=== PATIENT | female | born 1940 | race Caucasian/White ===

== ENCOUNTER 2019-05-04 15:10 | Emergency (ER) | payer MEDICARE, SELFPAY ==
[2019-05-04] VITALS (7 sets, daily range): BP systolic 118–191; BP diastolic 56–84; PULSE 66–88; RESP 10–20; TEMP 36.6; O2SAT 97–100
--- NOTE | ~2019-05-04 | CT_ITS ---
EXAMINATION: CTA chest PE protocol DATE: 05/04/2019 16:40 LAB AID INDICATION: Left pleuritic chest pain TECHNIQUE: Computed tomographic angiography (CTA) of the chest was performed with 100 mL Omnipaque-35 0 intravenous contrast. The dose-length product was 358.88 mGy-cm. Maximum intensity projection 3D-re constructions of the aorta and other arteries were constructed by the technologist on a separate work station. Automated exposure control and iterative reconstruction technique were employed. COMPARISON: Chest x-ray dated 05/04/2019 FINDINGS: Study is technically adequate without evidence for pulmonary embolism. Enlarged pulmonary a rteries, consistent with pulmonary arterial hypertension. There is atherosclerosis of the aorta witho ut evidence for dissection or aneurysm. No significant pleural or pericardial effusion. No thoracic l ymphadenopathy. There is fluid in the superior pericardial recess. There is nodular thickening of the left adrenal gland, likely due to adenomatous change. There are gallstones. There is severe emphysema. There is bilateral apical pleural thickening/scarring. No pneumothorax. No focal airspace consolidation. Calcified granuloma right middle lobe and lingula. IMPRESSION: 1. No evidence for pulmonary embolism. No acute cardiopulmonary disease. 2: Severe emphysema predominantly affecting the upper lobes. Biapical pleural thickening/scarring. 3: Pulmonary arterial hypertension. 4: Cholelithiasis. Reviewed, dictated and finalized at location A. AID IMPRESSION: 1. No evidence for pulmonary embolism. No acute cardiopulmonary disease. 2: Severe emphysema predominantly affecting the upper lobes. Biapical pleural t hickening/scarring. 3: Pulmonary arterial hypertension. 4: Cholelithiasis.
--- NOTE | ~2019-05-04 | XR_ITS ---
XR chest 2V 05/04/2019 16:40 Indication: Left-sided chest pain. Shortness of breath. Emphysema. Procedure: 2 view chest Comparison: 05/05/2017 Findings: Severe emphysema. No acute focal pneumonia, edema or effusion. No acute osseous abnormality . Mild levoscoliosis of the thoracic spine. Impression: 1: No acute cardiopulmonary disease. 2: Severe emphysema. Reviewed, dictated and finalized at location A. SPORTATION SUPERVISOR Impression: 1: No acute cardiopulmonary disease. 2: Severe emphysema.
--- NOTE | 2019-05-04 15:16 | ECG_ITS ---
Measurements Intervals [place] Rate: 88 P: 89 KS: 154 QRS: 64 QRSD: 106 T: 36 QT: 353 QTc: 429 Interpretive Statements SINUS RHYTHM INCOMPLETE RIGHT BUNDLE BRANCH BLOCK BASELINE ARTIFACT- I, II, III, AVR, AVL, AVF, V1-V2 BORDERLINE ECG Electronically Signed On 05-04-2019 16:07:49 LEAD INFORMATICA DEVELOPER by Ye Drake D.O.
[2019-05-04] MEDS: ASPIRIN 81 MG CHEWABLE TABLET 324 MG PO (15:28)
[2019-05-04 15:31] LABS: Basophils Absolute Auto 0.1 K/mm3 (0.0-0.1); Basophils Percent Auto 0.7 % (0.2-1.2); Eosinophils Absolute Auto 0.4 K/mm3 (0-0.3); Hematocrit 44.5 % (37.0-47.0); Hemoglobin 14.6 g/dL (12.0-15.0); Immature Granulocyte Absolute 0.03 K/mm3 (0.00-0.031); Immature Granulocyte Percent A 0.4 % (0-0.5); Lymphocytes Absolute Auto 1.99 K/mm3 (0.9-3.2); Lymphocytes Percent Auto 26.8 % (18.3-44.2); Mean Corpuscular HGB Conc 32.8 g/dl (32-36); Mean Corpuscular Hemoglobin 30.9 pg (26-34); Mean Corpuscular Volume 94.3 fl (80-100); Mean Platelet Volume 8.9 fl (7.4-10.4); Monocytes Percent Auto 13.1 % (2.6-8.5); Platelet Count Result 322 k/mm3 (150-375); Red Blood Count 4.72 M/mm3 (4.2-5.4); Red Cell Distribution Width 13.2 % (11.5-14.5); White Blood Count 7.4 K/mm3 (4.5-10.0)
[2019-05-04 15:42] LABS: Blood Urea Nitrogen 21 mg/dL (7-17); Calcium 9.9 mg/dL (8.4-10.2); Carbon Dioxide 29 mmol/L (22-30); Chloride 96 mmol/L (98-107); Estimated CRCL calculation 36 ml/min; Estimated Glomerular Filt Rate 60; Glucose 89 mg/dL (65-105); Potassium 4.1 mmol/L (3.4-5.0); Sodium 138 mmol/L (137-145)
[2019-05-04 15:46] LABS: INR 0.8; Prothrombin Time 11.2 Seconds (11.1-14.7)
[2019-05-04 15:47] LABS: Partial Thromboplastin Time 27.8 SECONDS (22.3-36.8)
[2019-05-04 15:54] LABS: Troponin I < 0.012 ng/mL (0.000-0.034)
--- NOTE | 2019-05-04 15:54 | ED.CHESTPAIN ---
HPI - Chest Pain General Chief Complaint: Chest Pain Stated Complaint: chest pain Time Seen by Provider: 05/04/19 15:44 Source: patient and RN notes reviewed Mode of arrival: other Limitations: no limitations History of Present Illness HPI narrative: Pt is an 79 y/o female who presents to the ED with c/o constant left sided chest pain that radiates to left sided neck, her left shoulder, and into the middle of her back. Pt's pain began 3 days ago (05/01/19), but has been progressively worsening. Pt denies a similar episode. Pt called her pulmonolgist and was recommended to come to the ED for further evaluation. Pt's sx are aggravated by movement and alleviated minimally while resting. Pt has been taking Vicodin for her sx, but no relief with the medication. Pt denies worsening SOB, cough, fever, nausea, vomiting, lightheadedness, and dizziness. Pt's pulmonolgist is Dr. Devine. complaint: chest pain Onset (ago): day(s) (3) Timing of current episode: constant Prior episodes: No Pain location: left chest Pain radiation: back (middle), neck (left) and left shoulder Relieving factors: remaining still (minimally) Exacerbating factors: exertion Associated symptoms: other (denies associated symptoms) Related Data Home Medications Medication Instructions Recorded Confirmed albuterol sulfate INHALATION 05/04/19 budesonide-formoterol [Symbicort] INHALATION 05/04/19 levothyroxine 05/04/19 triamterene-hydrochlorothiazid tablet 05/04/19 Allergies Allergy/AdvReac Type Severity Reaction Status Date / Time No Known Allergies Allergy Verified 05/04/19 15:28 Review of Systems Review of Systems: All systems reviewed & are unremarkable except as noted in HPI and below Constitutional: Constitutional: Denies fever(s) Cardiovascular: Cardiovascular: Reports chest pain (left, radiates to left neck, left shoulder, and to her middle back) and Denies lightheadedness Respiratory: Respiratory: Denies cough and Denies dyspnea (worsening) Gastrointestinal: Gastrointestinal: Denies nausea and Denies vomiting Neurologic: Denies dizziness PMF Past Medical History Medical History (Updated 05/04/19 @ 19:24 by Daniella Mars MD) Anxiety COPD (chronic obstructive pulmonary disease) Emphysema of lung GERD (gastroesophageal reflux disease) Hiatal hernia HTN (hypertension) Hypothyroid Osteoporosis Surgical History Surgical History (Updated 05/04/19 @ 16:08 by Alicia Blackwell) H/O breast biopsy History of tubal ligation Hx of appendectomy Social History Social History (Updated 05/04/19 @ 16:08 by Alicia Blackwell) Smoking packs per day: 1 Smoking cigarettes per day: 20.0 Years smoked: 30 Smoking pack-years: 30.00 Smoking status: Former smoker Tobacco type: cigarettes Second hand tobacco smoke exposure: Yes Additional smoking assessment comments: Pt quit smoking 30 years ago. Exam Narrative: Exam Narrative: GENERAL: Well-appearing, well-nourished, and in no acute distress. HEAD: Normocephalic, atraumatic EYES: PERRLA and EOMI, conjunctiva clear without discharge THROAT:Mucous membranes moist, Oropharynx normal without erythema, exudate, peritonsillar swelling or fluctuance NECK: Supple, without lymphadenopathy or mass RESPIRATORY: No respiratory distress, Airway patent, Respirations non-labored, Expiratory wheezing to left , reproducible left anterior chest and left posterior chest tenderness HEART: Regular rate and rhythm. No murmur heard. Normal peripheral pulses. strong palpable radial pulses ABDOMEN: Soft, nontender, nondistended, normal active bowel sounds. No masses. No rebound or guarding, No organomegaly. EXTREMITIES: No edema, normal strength with full range of motion. SKIN: Warm, dry, normal color without rash NEURO: Alert and oriented x3. CN 2-12 grossly intact. No focal deficits. PSYCH: Normal mood and affect. Course Course Emergency Course: Patient presented for pleurit
--- NOTE | 2019-05-04 16:23 | PCRCNOTE ---
PT IN CAT SCAN. TX DELAYED DUE TO PT N/A
[2019-05-04] MEDS: KETOROLAC 15 MG/ML VIAL (*BKC) IV PUSH (16:51)
[2019-05-04] MEDS: ALBUTEROL SULFATE NEB 2.5 MG/0.5 ML INH 5 MG INHALATION (17:10)
[2019-05-04] MEDS: IPRATROPIUM BR 0.02% INH SOLN 0.5 MG/2.5 ML VIAL INHALATION (17:10)
[2019-05-04 18:54] LABS: Troponin I < 0.012 ng/mL (0.000-0.034)
== END 2019-05-04 19:45 | disposition home or self-care (01) ==
PROVIDERS: Emergency Medicine; Emergency Provider General Practice; PCP Family Medicine
DX: J44.9 Chronic obstructive pulmonary disease, unspecified (principal); R07.9 Chest pain, unspecified; Z87.891 Personal history of nicotine dependence; F41.9 Anxiety disorder, unspecified; K21.9 Gastro-esophageal reflux disease without esophagitis; I10 Essential (primary) hypertension; E03.9 Hypothyroidism, unspecified
CPT/HCPCS: 36415; 71046; 71275; 80048; 84484; 85025; 85610; 85730; 93005; 94640; 96374; 99284; A9270; J1885; Q9967

== ENCOUNTER → 2020-08-25 16:40 | Outpatient (CLI) | payer MEDICARE, SELFPAY ==
--- NOTE | ~2020-08-25 | XR_ITS ---
EXAMINATION: XR chest 2V DATE: 08/25/2020 16:56 INDICATION: COPD . Chest pain. TECHNIQUE: PA and lateral views of the chest were obtained. COMPARISON: Chest radiograph and CT dated 05/04/2019 FINDINGS: Severe emphysema with increased lucency and architectural distortion in the upper lung zones. There i s also caudal retraction of the latrice with bronchovascular crowding the lower lung zones. Oblique opac ity in the right upper lung zone corresponding to a normal variant azygos lobe and fissure. Calcified nodules in the bilateral lower lung zones consistent with old granulomatous disease. No pulmonary ed luisa, pleural effusion or pneumothorax. The cardiomediastinal silhouette is normal. Mild lower thoraci c levoscoliosis with mild to moderate spondylosis. IMPRESSION: 1. Severe emphysema. Reviewed, dictated and finalized at location A. IMPRESSION: 1. Severe emphysema.
== END ==
PROVIDERS: PCP Family Medicine; Visit Provider Family Medicine
DX: R07.9 Chest pain, unspecified (principal); J43.9 Emphysema, unspecified
CPT/HCPCS: 71046

== ENCOUNTER 2023-02-17 12:06 | Emergency (ER) | payer MEDICARE, SELFPAY ==
--- NOTE | ~2023-02-17 | XR_ITS ---
XR chest 2V 02/17/2023 12:41 Indication: Cough and congestion Procedure: PA and lateral views of the chest Comparison: Comparison to multiple prior studies sequentially, with oldest reviewed study dated 10/2009. Findings: No acute focal pneumonia, edema, effusion or pneumothorax. There is emphysema. There is chr onic right upper lobe and bilateral lower lobe scarring. No acute osseous abnormality. Impression: 1: No acute cardiopulmonary disease. Reviewed, dictated and finalized at location B. UP MECHANIC Impression: 1: No acute cardiopulmonary disease.
[2023-02-17 12:23] VITALS: BP 136/57; PULSE 76; RESP 14; TEMP 37; O2SAT 96
--- NOTE | 2023-02-17 12:54 | ED.URI ---
HPI - URI/Sore Throat General Chief Complaint: Upper Respiratory Infection Stated Complaint: Sinus Time Seen by Provider: 02/17/23 12:30 Source: patient Mode of arrival: ambulatory Limitations: no limitations History of Present Illness HPI Narrative: Niecy is an 82-year-old female patient presenting to the clinic today with complaints of sinus congestion, cough, and some shortness of breath. History of emphysema. States she has had a low-grade fever as well. Symptoms have been going on for over 1 week. Bringing up some green and yellow phlegm when she is coughing MD elicited complaint: cough, nasal congestion and other (Shortness of breath) Related Data Home Medications Medication Instructions Recorded Confirmed albuterol sulfate 90 mcg/actuation 90 mcg inhalation DIRECTED 05/04/19 02/17/23 aerosol inhaler budesonide-formoterol HFA 160 1 inh inhalation DIRECTED 05/04/19 02/17/23 mcg-4.5 mcg/actuation aerosol inhaler (Symbicort) levothyroxine 150 mcg tablet 150 mcg DIRECTED 05/04/19 02/17/23 triamterene 75 1 tablet DIRECTED 05/04/19 02/17/23 mg-hydrochlorothiazide 50 mg tablet Allergies Allergy/AdvReac Type Severity Reaction Status Date / Time No Known Allergies Allergy Verified 05/12/19 11:00 Review of Systems Review of Systems: Pertinent positives per HPI. Patient denies any fever, chills, rash, headache, visual changes, dizziness, chest pain, palpitations, nausea, vomiting, diarrhea, constipation, abdominal pain, or any urinary issues. [facility] Past Medical History Medical History Anxiety COPD (chronic obstructive pulmonary disease) Emphysema of lung GERD (gastroesophageal reflux disease) Hiatal hernia HTN (hypertension) Hypothyroid Osteoporosis Surgical History Surgical History H/O breast biopsy History of tubal ligation Hx of appendectomy Social History Social History Smoking packs per day: 1 Smoking cigarettes per day: 20.0 Years smoked: 30 Smoking pack-years: 30.00 Smoking status: Former smoker Tobacco type: cigarettes Second hand tobacco smoke exposure: Yes Additional smoking assessment comments: Pt quit smoking 30 years ago. Comments At the time of my signature, I reviewed and agree with the nursing past medical, surgical, social, and family history. There is no relevant family history pertinent to the patient complaint. Exam Narrative: General: Well-developed, well nourished, in no apparent distress Head: Normocephalic, atraumatic Eyes: Pupils equally round and reactive to light bilaterally, EOM intact, sclera and conjunctive clear, no discharge, lids normal Ears: TMs intact and clear, ear canals clear, no drainage, grossly hearing normal. Nose: Nares patent, no discharge, no inflammation, no sinus tenderness. Mouth: Oral pharynx without lesions or masses, good dentition, MMM. Neck: Supple, trachea midline, no enlargement of anterior or posterior cervical nodes, no thyroid masses or goiter palpable. Cardio: Regular rate and rhythm, s1 and s2 normal, no murmur appreciated. Resp: Crackles in the bases with faint wheezing, no rhonchi, rales, or rubs Course Course Emergency Course: Portions of this record may have been created with voice recognition software. Level of Care: Express Care Visit Vital Signs Vital signs: Vital Signs Temperature 37.0 C 02/17/23 12:23 Pulse Rate 76 02/17/23 12:23 Respiratory Rate 14 02/17/23 12:23 Blood Pressure 136/57 L 02/17/23 12:23 Pulse Oximetry 96 02/17/23 12:23 Oxygen Delivery Room Air 02/17/23 12:23 Temperature 37.0 C 02/17/23 12:23 Pulse Rate 76 02/17/23 12:23 Respiratory Rate 14 02/17/23 12:23 Blood Pressure 136/57 L 02/17/23 12:23 Pulse Oximetry 96 02/17/23 12:23 Oxygen De
== END 2023-02-17 13:01 | disposition home or self-care (01) ==
PROVIDERS: Emergency Provider Nurse Practitioner Family
DX: J44.1 Chronic obstructive pulmonary disease with (acute) exacerbation (principal); Z87.891 Personal history of nicotine dependence; K21.9 Gastro-esophageal reflux disease without esophagitis; I10 Essential (primary) hypertension; E03.9 Hypothyroidism, unspecified; M81.0 Age-related osteoporosis without current pathological fracture
CPT/HCPCS: 71046; 99213; G0463